=== PATIENT | female | born 1970 ===

== ENCOUNTER 2018-11-03 15:51 | Emergency (ER) | payer SELFPAY ==
--- NOTE | 2018-11-03 16:06 | ER Report ---
History and Physical Time Seen By MD: 16:06 HPI/ROS CHIEF COMPLAINT: Medication refill HISTORY OF PRESENT ILLNESS: 48-year-old female patient presents to emergency room with complaint of needing a medication refill. Patient states that she has been out of her Risperdal for the past 4 days. Patient states that she is taken that for anxiety. She states that her anxiety has become out of control. She states that she was visiting her daughter and grandchild and grandchild knocked her medication over and her daughter and sweeping it up and throwing trash. She is unaware there was her medication. She denies any nausea, vomiting, diarrhea. Allergies: Coded Allergies: Penicillins (Verified Allergy, Unknown, HIVES, 11/03/18) Home Meds Active Scripts Risperidone (RISPERDAL) 4 Mg Tablet, 4 MG PO QHS PRN for PAIN, #21 TAB Prov:YULISA PINK [employer] 11/03/18 Reported Medications Bupropion Hcl (WELLBUTRIN XL) 150 Mg Tab.er.24h, 150 MG PO QDAY, TAB 11/03/18 Levetiracetam (LEVETIRACETAM) 500 Mg Tab.er.24h, 500 MG PO TID, TAB 11/03/18 Past Medical/Surgical History Patient has a past medical history of seizures, TIA, pneumonia. Patient has a past surgical history of cholecystectomy, a plate placed to the left side of head. Reviewed Nurses Notes: Yes Constitutional Vital Sign - Last 24 Hours 11/03/18 16:08 Temp 97.3 Pulse 99 Resp 12 B/P (MAP) 116/80 Pulse Ox 92 O2 Delivery Room Air Physical Exam General appearance: Alert no distress. Respiratory: Chest is non tender, lungs are clear to auscultation. Cardiac: Regular rate and rhythm DIFFERENTIAL DIAGNOSIS: After history and physical exam differential diagnosis was considered for anxiety Medical Decision Making ED Course/Re-evaluation ED Course Patient is admitted and examined, history and physical were obtained. Differential diagnoses were considered. I examination lungs are clear, heart is regular, abdomen soft nontender. Since she is requesting a refill of a medication which is nonnarcotic we'll go ahead and give her a 3 week supply. Patient and her significant other stated that they are in town due to their carving broken down. They state that they will be able to get it fixed belief shortly after [place]. Decision to Disposition Date: Nov 03, 2018 Decision to Disposition Time: 16:15 Depart Departure Latest Vital Signs Vital Signs Date Time Temp Pulse Resp B/P (MAP) Pulse Ox O2 Delivery O2 Flow Rate FiO2 11/03/18 16:08 97.3 99 12 116/80 92 Room Air Impression: Primary Impression: Anxiety Condition: Improved Disposition: HOME OR SELF-CARE New Scripts Risperidone (RISPERDAL) 4 Mg Tablet 4 MG PO QHS PRN for PAIN, #21 TAB Prov: YULISA PINK 11/03/18 Patient Instructions: Anxiety (ED) Additional Instructions: Take medication as prescribed. Return to the ER if condition worsens. Follow up with your primary care provider when you return home. YULISA PINK Nov 03, 2018 16:06
[2018-11-03 16:08] VITALS: BP 116/80
[2018-11-03] MEDS ORDERED: RISP4TAB99 PO (16:14)
[2018-11-03] MEDS ORDERED: LEVE500T75 PO (16:16)
[2018-11-03] MEDS ORDERED: BUPR-472 PO (16:16)
== END 2018-11-03 16:19 | disposition home or self-care (01) ==
LOC: ER 15:58
DX: Z76.0 Encounter for issue of repeat prescription (principal); F41.9 Anxiety disorder, unspecified
CPT/HCPCS: 99281